=== PATIENT | female | born 1985 | race Caucasian/White ===

== ENCOUNTER 2023-05-12 10:44 | Outpatient (AMB) | payer OTHER, SELFPAY ==
--- NOTE | 2023-05-12 11:44 | MHC.OFFWIV ---
Intake Vital Signs 05/12/23 11:45 Height 5 ft 10 in BP 132/80 Blood Pressure Location Lt brachial Position Sitting Pulse 98 Pulse Source Pulse Oximeter Temp 96.9 F Temp Source Temporal Artery Scan Pulse Oximetry (%) 99 Oxygen Delivery Method Room Air Intake Visit Reasons: EP Abdominal pain/kidneypain [phone] Intake Note: Pt is here c/o gastro intense pain. Pt states she has been feeling discomfort for 4 days. Patient Tobacco Use Status: Never used Tobacco Allergies shellfish derived [SHELLFISH DERIVED] Allergy (Unknown, Unverified 05/12/23 13:27) VOMITING, DIARRHEA Medication List - Last Reconciled 05/12/23 by Marcelo Tavares MD dextroamphetamine-amphetamine 30 mg ER 1 cap PO DAILY Do you need a note to return to daycare/school/sports/work: Yes HPI EP Abdominal pain/kidneypain [phone] HPI Details Patient presents for a sick visit. Reports symptoms of increased frequency of urination, burning on urination and discomfort in the suprapubic area. Symptoms started in the past few days. No fevers or chills. No nausea or vomiting. PFSH Social History Patient Tobacco Use Status: Never used Tobacco Physical Exam Vital Signs: Last Vital Signs Temp 96.9 F 05/12/23 11:45 Pulse 98 05/12/23 11:45 BP 132/80 05/12/23 11:45 Pulse Ox 99 05/12/23 11:45 Oxygen Delivery Method Room Air 05/12/23 11:45 General: Yes bladder normal to inspection, Yes bladder normal to palpation and Yes no CVA tenderness Bimanual exam- vagina & uterus: bladder normal to palpation Back/Spine/Pelvis Back: no CVA tenderness Results AMB Urinalysis, Automated UA Leukoctes 0 Valarie/uL Last Edit by Yanira Snyder CMA on 05/12/23 12:03 UA Nitrite Negative Last Edit by Yanira Snyder CMA on 05/12/23 12:03 UA Urobilinogen 0.2 mg/dL Last Edit by Yanira Snyder CMA on 05/12/23 12:03 UA Protein 0 mg/dL Last Edit by Yanira Snyder CMA on 05/12/23 12:03 UA pH 6.0 Last Edit by Yanira Snyder CMA on 05/12/23 12:03 UA Blood 0 James/uL Last Edit by Yanira Snyder CMA on 05/12/23 12:03 UA Specific [place] 1.020 Last Edit by Yanira Snyder CMA on 05/12/23 12:03 UA Ketone Negative Last Edit by Yanira Snyder, FLORY on 05/12/23 12:03 UA Bilirubin 0 mg/dL Last Edit by Yanira Snyder CMA on 05/12/23 12:03 UA Glucose 0 mg/dL Last Edit by Yanira Snyder CMA on 05/12/23 12:03 Results Reviewed Results Reviewed: Laboratory Last Values Urine pH (Auto) 6.0 05/12/23 12:00 Specific [place] (Auto) 1.020 05/12/23 12:00 Urine Protein (Auto) 0 mg/dL 05/12/23 12:00 Glucose (UA)(Auto) 0 mg/dL 05/12/23 12:00 Urine Ketones (Auto) Negative 05/12/23 12:00 Urine Blood (Auto) 0 James/uL 05/12/23 12:00 Urine Nitrite (Auto) Negative 05/12/23 12:00 Urine Bilirubin (Auto) 0 mg/dL 05/12/23 12:00 Urine Urobilinogen (Auto) 0.2 mg/dL 05/12/23 12:00 Leukocyte Esterase (Auto) 0 Valarie/uL 05/12/23 12:00 Assessment & Plan Assessment & Plan (1) Urinary tract infection: Code(s): N39.0 - Urinary tract infection, site not specified Plan: Take antibiotics and Pyridium as directed. Increase fluid intake. If symptoms of burning persist, new onset of fever or lower back pain, to follow-up at the clinic. Orders: Orders AMB Urinalysis Automated Today Z13.9 - Encounter for screening, unspecified Coding Level of Care Code Est Pt Level 3 (59134) Diagnoses Urinary tract infection N39.0
[2023-05-12 11:45] VITALS: BP 132/80; PULSE 98; TEMP 36.1; O2SAT 99
== END 2023-05-12 13:32 | disposition home or self-care (01) ==
PROVIDERS: PCP Internal Medicine; Visit Provider Internal Medicine
DX: N39.0 Urinary tract infection, site not specified (principal); R35.0 Frequency of micturition
CPT/HCPCS: 81003; 99213

== ENCOUNTER 2024-03-10 08:24 | Outpatient (AMB) | payer OTHER, SELFPAY ==
[2024-03-10 08:37] VITALS: BP 140/100; PULSE 94; TEMP 36.5; O2SAT 98; BMI 44.5
--- NOTE | 2024-03-10 08:37 | AM.OFFWIN_ITS ---
Intake Vital Signs 03/10/24 08:37 Height 5 ft 10 in Weight 310 lb BMI 44.5 BP 140/100 H Blood Pressure Location Lt brachial Position Sitting Pulse 94 Pulse Source Pulse Oximeter Temp 97.7 F Temp Source Temporal Artery Scan Pulse Oximetry (%) 98 Oxygen Delivery Method Room Air Intake Visit Reasons: EP UTI Intake Note: pt is here today for UTI started 3 days ago Patient Tobacco Use Status: Never used Tobacco Allergies shellfish derived [SHELLFISH DERIVED] Allergy (Unknown, Verified 03/10/24 08:50) VOMITING, DIARRHEA Do you need a note to return to daycare/school/sports/work: No HPI HPI Comments History of Present Illness Details 39 y/o female patient who presents to [facility] in clinic with c/o Urinary symptoms x 3 days. Reports discomfort with urination, foul odor urine and dark brown colored urine. Denies fevers, chills, nausea or vomiting. PFSH Social History Patient Tobacco Use Status: Never used Tobacco Review of Systems Const All systems reviewed & are unremarkable except as noted in HPI and below Physical Exam Vital Signs: Last Vital Signs Temp 97.7 F 03/10/24 08:37 Pulse 94 03/10/24 08:37 BP 140/100 H 03/10/24 08:37 Pulse Ox 98 03/10/24 08:37 Oxygen Delivery Method Room Air 03/10/24 08:37 BMI result Body Mass Index 44.5 Const General: comfortable and no acute distress Nutritional Appearance: obese Orientation/consciousness: patient oriented x3 General: Yes CVA tenderness Back/Spine/Pelvis Back: CVA tenderness Neuro General: patient oriented x3, gait normal and moves all extremities Psych Speech and movement: Normal speech and movement present Results AMB Urinalysis, Automated UA Leukoctes 15 Valarie/uL Last Edit by Kath Rangel MA on 03/10/24 08:53 UA Nitrite Negative Last Edit by Kath Rangel MA on 03/10/24 08:53 UA Urobilinogen 0.2 mg/dL Last Edit by Kath Rangel MA on 03/10/24 08:53 UA Protein 15 mg/dL Last Edit by Kath Rangel MA on 03/10/24 08:53 UA pH 6.0 Last Edit by Kath Rangel MA on 05/08/24 08:53 UA Blood 200 James/uL Last Edit by Kath Rangel MA on 03/10/24 08:53 UA Specific [place] 1.015 Last Edit by Kath Rangel MA on 03/10/24 08:53 UA Ketone Negative Last Edit by Kath Rangel MA on 03/10/24 08:53 UA Bilirubin 0 mg/dL Last Edit by Kath Rangel MA on 03/10/24 08:53 UA Glucose 0 mg/dL Last Edit by Ktah Rangel MA on 03/10/24 08:53 Results Reviewed Results Reviewed: Laboratory Last Values Urine pH (Auto) 6.0 03/10/24 08:52 Specific [place] (Auto) 1.015 03/10/24 08:52 Urine Protein (Auto) 15 mg/dL 03/10/24 08:52 Glucose (UA)(Auto) 0 mg/dL 03/10/24 08:52 Urine Ketones (Auto) Negative 03/10/24 08:52 Urine Blood (Auto) 200 James/uL 03/10/24 08:52 Urine Nitrite (Auto) Negative 03/10/24 08:52 Urine Bilirubin (Auto) 0 mg/dL 03/10/24 08:52 Urine Urobilinogen (Auto) 0.2 mg/dL 03/10/24 08:52 Leukocyte Esterase (Auto) 15 Valarie/uL 03/10/24 08:52 Assessment & Plan Assessment & Plan (1) Urinary tract infection: Code(s): N39.0 - Urinary tract infection, site not specified Qualifiers: Urinary tract infection type: acute cystitis Hematuria presence: without hematuria Qualified Code(s): N30.00 - Acute cystitis without hematuria Plan: - Drink plenty of water - Take medicine as directed. Medications: New nitrofurantoin monohyd/m-cryst 100 mg (Macrobid) must administer with a meal/food 100 mg PO Q12H 7 days 14 caps 0RF N30.00 - Acute cystitis without hematuria Discontinued sulfamethoxazole-trimethoprim 800-160 mg (Bactrim DS) Discontinued Reason: Patient Completed Course 1 tab PO BID 5 days 10 tabs 0RF phenazopyridine (Pyridium) Discontinued Reason: Patient Completed Course 200 mg PO TID 3 days 9 tabs 0RF Coding Level of Care Code Est Pt Level 3 (96496) Diagnoses Acute cystitis without hematuria N30.00 Urinary tract infection type: acute cystitis Hematuria presence: without hematuria Time Spent (min) 15
== END 2024-03-10 09:00 | disposition home or self-care (01) ==
PROVIDERS: Visit Provider Nurse Practitioner Family
DX: N30.00 Acute cystitis without hematuria (principal)
CPT/HCPCS: 99213

== ENCOUNTER 2024-07-21 14:13 | Outpatient (AMB) | payer BC, SELFPAY ==
--- NOTE | 2024-07-21 14:14 | AM.OFFWIN_ITS ---
Intake Vital Signs 07/21/24 14:15 Height 5 ft 10 in Weight 311 lb BMI 44.6 BP 128/86 Blood Pressure Location Rt brachial Position Sitting Pulse 83 Pulse Source Pulse Oximeter Temp 98.3 F Temp Source Oral Pulse Oximetry (%) 99 Oxygen Delivery Method Room Air Intake Visit Reasons: EP Kidney pain Intake Note: pt c/o lower back pain/ ? kidney pain, urinary urgency. Intermittent for 2 weeks Patient Tobacco Use Status: Never used Tobacco Allergies shellfish derived [SHELLFISH DERIVED] Allergy (Unknown, Verified 07/21/24 14:14) VOMITING, DIARRHEA Do you need a note to return to daycare/school/sports/work: No HPI HPI Comments History of Present Illness Details Patient is a 39-year-old female complaining of right-sided low back pain which has been intermittent for the last 2 weeks. Patient actually tells me she has had increased urgency for the last few months on and off and she was treated for a urinary tract infection twice over the summer but never really felt like she got better or her symptoms completely resolved. She showed me the [employer] urine culture from the last ?UTI ?and there was no growth. She states that she has had kidney stones in the past and presumably passed them on her own because she does not remember hearing a ?clink ?in the toilet. She also states that yesterday she had an intense right-sided low back pain for about 45 minutes but then it stopped, the pain was similar to the pain she had with her kidney stones in the past. She denies noticing any blood in her urine or fevers. She does state she is having her menstrual cycle right now. [facility] Social History Patient Tobacco Use Status: Never used Tobacco Review of Systems Const All systems reviewed & are unremarkable except as noted in HPI and below Physical Exam Vital Signs: BMI result Body Mass Index 44.6 Const General: cooperative, healthy appearing, comfortable and no acute distress Orientation/consciousness: patient oriented x3 HEENT Head: Yes normal to inspection Ears: hearing grossly normal bilaterally General nose exam: Normal external nose present Face and sinus: Yes normal facial exam Neck Neck: Yes normal visual inspection, Yes trachea midline and Yes supple Resp Effort & Inspection: normal respiratory effort and able to speak in complete sentences General: Yes no CVA tenderness (Bilaterally) Back/Spine/Pelvis Back: no CVA tenderness (Bilaterally) Skin General skin exam: no rashes or lesions noted Neuro General: patient oriented x3 Psych Appearance: grossly normal Speech and movement: Normal speech and movement present Attitude: cooperative Thought process: Normal thought process present Insight: Good insight present (Psych) Judgement: Good judgement present (Psych) Results AMB Urinalysis, Automated UA Leukoctes 0 Valarie/uL Last Edit by Joseph Crawford CMA on 07/21/24 14:27 UA Nitrite Negative Last Edit by Joseph Crawford CMA on 07/21/24 14:27 UA Urobilinogen 0.2 mg/dL Last Edit by Joseph Crawford CMA on 07/21/24 14:27 UA Protein 15 mg/dL Last Edit by Joseph Crawford CMA on 07/21/24 14:27 UA pH 6.0 Last Edit by Joseph Crawford CMA on 07/21/24 14:27 UA Blood 200 James/uL Last Edit by Joseph Crawford, FLORY on 07/21/24 14:27 UA Specific [place] 1.030 Last Edit by Joseph Crawford CMA on 07/21/24 14:27 UA Ketone Negative Last Edit by Joseph Crawford CMA on 07/21/24 14:27 UA Bilirubin 0 mg/dL Last Edit by Joseph Crawford CMA on 07/21/24 14:27 UA Glucose 0 mg/dL Last Edit by Joseph Crawford CMA on 07/21/24 14:27 Assessment & Plan Assessment & Plan (1) Right-sided low back pain without sciatica: Code(s): M54.50 - Low back pain, unspecified Qualifiers: Chronicity: acute Qualified Code(s): M54.50 - Low back pain, unspecified Plan: Vital signs are stable and patient is well-appearing, UA is negative for infection but 3+ positive for blood (however patient on her menstrual cycle), likely a right-sided kidney stone based on the story. Recommended patient go to the emergency department for further workup. Called [facility] ED with expect. Plan See above Coding Level of Care Code New Pt Level 5 (96618) Diagnoses Acute right-sided low back pain without sciatica M54.50 Chronicity: acute
[2024-07-21 14:15] VITALS: BP 128/86; PULSE 83; TEMP 36.8; O2SAT 99; BMI 44.6
== END 2024-07-21 15:27 | disposition home or self-care (01) ==
PROVIDERS: PCP Internal Medicine; Visit Provider Physician Assistant
DX: M54.50 Low back pain, unspecified (principal)

== ENCOUNTER → 2024-07-21 14:13 | Outpatient (BNVA) | payer BC, SELFPAY | PROVIDERS: PCP Internal Medicine | DX: Z13.89 Encounter for screening for other disorder (principal) ==

== ENCOUNTER 2024-07-21 14:57 | Emergency (ER) | payer BC, SELFPAY ==
--- NOTE | ~2024-07-21 | XR_ITS ---
EXAMINATION: XR CHEST CLINICAL INFORMATION: Cough. COMPARISON: None available. TECHNIQUE: Frontal view of the chest was obtained. FINDINGS: No significant abnormality is noted involving the heart, lungs, mediastinum, bony thorax or soft tissues. XR/XR chest 1V IMPRESSION: Unremarkable examination. Electronically signed by: Capo Ordaz MD 07/22/2024 04:43 AM EDT
--- NOTE | ~2024-07-21 | CT_ITS ---
EXAMINATION: CT ABDOMEN AND PELVIS WITHOUT CONTRAST CLINICAL INFORMATION: Right sided flank pain COMPARISON: CT abdomen and pelvis 06/04/2020 TECHNIQUE: Multidetector volumetric imaging was performed from the superior aspect of the liver through the pubic symphysis. Sagittal and coronal reformatted images were obtained on the technologist's workstation. This CT examination was performed using dose optimization techniques as appropriate, variously including the following: *Automated exposure control *Adjustment of mA and/or kV according to patient size (this includes techniques or standardized protocols for targeted exams where dose is matched to indication/reason for exam; i.e. extremities or head) *Use of iterative reconstruction technique DLP: 1284 mGy-cm FINDINGS: LUNG BASES: The visualized lung bases are unremarkable. LIVER, GALLBLADDER, AND BILIARY TREE: The liver is enlarged at 18.6 cm in length with decreased attenuation consistent with hepatic steatosis. There is focal fatty sparing around the gallbladder. No focal hepatic lesion or biliary ductal dilatation is present. The gallbladder is unremarkable with no evidence of radiopaque gallstones, gallbladder wall thickening, or obvious pericholecystic inflammatory changes. PANCREAS: Unremarkable. SPLEEN: Unremarkable. ADRENAL GLANDS: Unremarkable. KIDNEYS AND URETERS: There is right-sided hydronephrosis and dilatation of the right ureter down to the level of 2 mm sized obstructing stone at the right UVJ. Left kidney and ureter are normal. BLADDER: Empty but unremarkable GASTROINTESTINAL TRACT: Few scattered colonic diverticula without diverticulitis. The small and large bowel are unremarkable. The appendix is unremarkable. ABDOMINAL WALL: No significant hernia is appreciated. LYMPH NODES: No retroperitoneal lymphadenopathy VASCULAR: Unremarkable. PELVIC VISCERA: Feeding OSSEOUS STRUCTURES: Marked scoliosis convex to the left with left lateral listhesis of L2 upon L3 with severe degenerative change at this level with loss of the disc space CT/CT abdomen pelvis wo IV con IMPRESSION: 1. Obstructing 2 mm calculus at the right UVJ with associated right-sided hydronephrosis. 2. Incidental note made of enlarged fatty liver and severe degenerative changes in the spine with scoliosis. Fleischner guidelines were followed. Electronically signed by: Daniel Masters MD 07/21/2024 10:53 PM EDT
[2024-07-21 15:17] VITALS: BP 213/117; PULSE 84; RESP 16; TEMP 37.1; O2SAT 100; BMI 45.2
--- NOTE | 2024-07-21 15:20 | ED.GENADULT ---
HPI - General Adult General Chief complaint: Urogenital-Female Stated complaint: back pain Time Seen by Provider: 07/22/24 02:39 Source: patient Mode of arrival: ambulatory Limitations: no limitations History of Present Illness ED Provider: Lucretia LOPEZ narrative: Patient's right-sided flank pain and suprapubic pressure off and for last few weeks got worse in last few days no hematuria was treated for UTI in the past no fever no chills no bowel problems Related Data Home Medications ?Medication ?Instructions ?Recorded ?Confirmed dextroamphetamine-amphetamine ER 1 cap PO DAILY 05/12/23 30 mg 24hr capsule,extend release Previous Rx's ?Medication ?Instructions ?Recorded cefuroxime axetil 250 mg tablet 250 mg PO BID 7 days #14 tabs 07/22/24 oxycodone 5 mg tablet 5 mg PO Q6H PRN pain #20 tabs 07/22/24 tamsulosin 0.4 mg capsule (Flomax) 0.4 mg PO BEDTIME #7 caps 07/22/24 Allergies Allergy/AdvReac Type Severity Reaction Status Date / Time shellfish derived Allergy Unknown VOMITING, Verified 07/21/24 15:21 [SHELLFISH DERIVED] DIARRHEA Review of Systems Review of Systems: Yes all other systems are reviewed and are negative [facility] Social History Social History Patient Tobacco Use Status: Never used Tobacco Substance Use Type: Marijuana Physical Exam ED Vital Signs: BMI result Body Mass Index 45.2 Appearance: Alert. Oriented X3. No acute distress. ENT: Pharynx normal. Oral Mucosa moist Neck: Normal inspection. Neck supple. CVS: Normal heart rate and rhythm. Pulses normal. Respiratory: No respiratory distress. Equal air entry bilateral, Abdomen: Soft and nontender. Bowel sounds are present, no mass palpable, R CVA tenderness Skin: Skin warm and dry. Normal skin color. Normal skin turgor. Extremities: No lower extremity edema. No calf tenderness Neuro: Oriented X 3. No motor deficit. No sensory deficit.No cerebellar signs , cranial nerves II-XII intact Course Course Course Narrative: This is a rapid medical exam performed by Darnell Rothman NP: Additional HPI, ROS, PE not included below will be deferred to primary provider. Patient is a 39-year-old female presenting with R flank pain since March. Treated for UTI, sxs persisting. Started menstrual period today. BP 213/117 in triage, denies hx of HTN. Plan: EKG, labs, UA, CT Medications Administered Discontinued Medications Generic Name Dose Route Start Last Admin Trade Name Chance PRN Reason Stop Dose Admin Cefuroxime Axetil 500 mg 07/22/24 05:20 07/22/24 05:37 Cefuroxime Axetil 500 Mg Tablet PO 07/22/24 05:21 500 mg ONCE ONE Administration Ketorolac Tromethamine 60 mg 07/22/24 05:25 07/22/24 05:37 Ketorolac Tromethamine 60 Mg/2 Ml Vial IM 07/22/24 05:26 60 mg ONCE ONE Administration Tamsulosin HCl 0.4 mg 07/22/24 05:20 07/22/24 05:37 Tamsulosin Hcl 0.4 Mg Capsule PO 07/22/24 05:21 0.4 mg ONCE ONE Administration Medical Decision Making Medical Decision Making [facility] Narrative: Patient is a 2 mm right UVJ stone with mild hydro felt better after IV fluids and pain medication in the ER pain-free at this time will discharge patient home advised to follow with urologist Differential Diagnosis Differential Diagnoses: The differential diagnosis associated with the presentation includes Lab Data MDM Lab Attestation statement: I reviewed the patient's lab results. 07/21/24 18:40 07/21/24 18:40 Labs: Lab Results 07/21/24 07/21/24 07/21/24 Range/Units 18:35 18:39 18:40 WBC 11.1 H (4.8-10.8) X10*3/uL RBC 5.23 (4.20-5.50) X10*6/uL Hgb 14.6 (12.0-16.0) g/dl Hct 44.4 (37.0-47.0) % MCV 84.9 (80.0-98.0) fL MCH 27.9 (27.0-33.0) pg MCHC 32.9 (31.0-35.0) g/dl RDW 12.1 (11.0-16.0) % Plt Count 320 (160-400) X10*3/uL MPV 9.5 (9.4-12.3) fL Immature Gran % (Auto) 0.4 (0.0-0.4) % Neut % (Auto) 74.7 H (45-73) % Lymph % (Auto) 16.1 L (20-40) % [place] % (Auto) 6.7 (2-11) % Eos % (Auto) 1.7 (0-4) % Baso % (Auto) 0.4 (0-2) % Lymph # (Auto) 1.8 (1.2-4.9) X10*3/uL [place] # (Auto) 0.7 (0.1-1.2) X10*3/uL Eos # (Auto) 0.2 (0.0-0.4) X10*3/uL Baso # (Auto) 0.0 (0.0-0.2) X10*3/uL Abs Immat Gran (auto) 0.04 H (0.00-0.03) X10*3/uL Absolute Neuts (auto) 8.3 (2.0-8.3) x10*3/uL Absolute Nucleated RBC 0.000 (0.0-0.012) X10*3/uL Nucleated RBC % (auto) 0.0 (0.0-0.2) /100WBC Sodium 141 (135-145) mmol/L Potassium 4.1 (3.3-5.1) mmol/L Chloride 105 (96-108) mmol/L Carbon Dioxide 26 (22-29) mmol/L Anion Gap 14 (12-20) BUN 14 (9-16) mg/dL Creatinine 1.07 (0.5-1.4) mg/dL Estim Creat Clear Calc 109.5 Estimated GFR 57 Random Glucose 98 (60-115) mg/dL Calcium 9.7 (8.4-10.2) mg/dL Total Bilirubin 0.3 (0.0-1.0) mg/dL AST 34 H (5-31) U/L ALT 49 H (0-31) U/L Alkaline Phosphatase 59 (39-117) U/L Total Protein 7.9 (6.5-8.0) g/dL Albumin 4.4 (3.5-5.0) g/dL Beta HCG, Quant < 2 mIU/mL Urine Color Yellow Urine Appearance Cloudy Urine pH 5.5 (5.0-9.0) Ur Specific [place] >= 1.030 H (1.005-1.025) Urine Protein Trace (Neg-Trace) mg/dL Urine Glucose (UA) Negative (Negative) mg/dL Urine Ketones Trace (Negative) mg/dL Urine Blood Large (3+) H (Negative) Urine Nitrite Negative (Negative) Ur Leukocyte Esterase Trace H (Negative) Urine RBC >20 H (0-2) /HPF Urine WBC 11-20 H (0-5) /HPF Ur Squamous Epith Cells 6-10 (0-2) /HPF Calcium Oxalate Crystal Present Urine Bacteria 2+ (None Seen) Hyaline Casts 0-2 (0-2) /LPF COVID-19 (SEBASTIÁN) (Negative) COVID-19 Clin Com 07/22/24 Range/Units 04:18 WBC (4.8-10.8) X10*3/uL RBC (4.20-5.50) X10*6/uL Hgb (12.0-16.0) g/dl Hct (37.0-47.0) % MCV (80.0-98.0) fL MCH (27.0-33.0) pg MCHC (31.0-35.0) g/dl RDW (11.0-16.0) % Plt Count (160-400) X10*3/uL MPV (9.4-12.3) fL Immature Gran % (Auto) (0.0-0.4) % Neut % (Auto) (45-73) % Lymph % (Auto) (20-40) % [place] % (Auto) (2-11) % Eos % (Auto) (0-4) % Baso % (Auto) (0-2) % Lymph # (Auto) (1.2-4.9) X10*3/uL [place] # (Auto) (0.1-1.2) X10*3/uL Eos # (Auto) (0.0-0.4) X10*3/uL Baso # (Auto) (0.0-0.2) X10*3/uL Abs Immat Gran (auto) (0.00-0.03) X10*3/uL Absolute Neuts (auto) (2.0-8.3) x10*3/uL Absolute Nucleated RBC (0.0-0.012) X10*3/uL Nucleated RBC % (auto) (0.0-0.2) /100WBC Sodium (135-145) mmol/L Potassium (3.3-5.1) mmol/L Chloride (96-108) mmol/L Carbon Dioxide (22-29) mmol/L Anion Gap (12-20) BUN (9-16) mg/dL Creatinine (0.5-1.4) mg/dL Estim Creat Clear Calc Estimated GFR Random Glucose (60-115) mg/dL Calcium (8.4-10.2) mg/dL Total Bilirubin (0.0-1.0) mg/dL AST (5-31) U/L ALT (0-31) U/L Alkaline Phosphatase (39-117) U/L Total Protein (6.5-8.0) g/dL Albumin (3.5-5.0) g/dL Beta HCG, Quant mIU/mL Urine Color Urine Appearance Urine pH (5.0-9.0) Ur Specific [place] (1.005-1.025) Urine Protein (Neg-Trace) mg/dL Urine Glucose (UA) (Negative) mg/dL Urine Ketones (Negative) mg/dL Urine Blood (Negative) Urine Nitrite (Negative) Ur Leukocyte Esterase (Negative) Urine RBC (0-2) /HPF Urine WBC (0-5) /HPF Ur Squamous Epith Cells (0-2) /HPF Calcium Oxalate Crystal Urine Bacteria (None Seen) Hyaline Casts (0-2) /LPF COVID-19 (SEBASTIÁN) Negative (Negative) COVID-19 Clin Com See Note Independent Interpretation I performed an independent interpretation of an: CT Scan Radiology Impression Discussion of test interpretation with radiology: I have reviewed the radiologist's reading. Radiologist Impression: Close Chest X-Ray (Signed) Capo Ordaz - 07/22/24 Abdomen/Pelvis CT (Signed) Daniel Masters - 07/21/24 Launch?Image [address] [address] [address] Scan Report Signed Patient: Radha Lambert MR#: [id number] : 1985 Acct:[id number] Age/Sex: 39 / F ADM Date: 07/21/24 Loc: HO.ED Attending Dr: Ordering Physician: Aleyda Rothman NP Date of Service: 07/21/24 Procedure(s): CT abdomen pelvis wo IV con Accession Number(s): [id number] cc: Ambreen Siddiqui MD; Aleyda Rothman NP~ EXAMINATION: CT ABDOMEN AND PELVIS WITHOUT CONTRAST CLINICAL INFORMATION: Right sided flank pain COMPARISON: CT abdomen and pelvis 06/04/2020 TECHNIQUE: Multidetector volumetric imaging was performed from the superior aspect of the liver through the pubic symphysis. Sagittal and coronal reformatted images were obtained on the technologist's workstation. This CT examination was performed using dose optimization techniques as appropriate, variously including the following: *Automated exposure control *Adjustment of mA and/or kV according to patient size (this includes techniques or standardized protocols for targeted exams where dose is matched to indication/reason for exam; i.e. extremities or head) *Use of iterative reconstruction technique DLP: 1284 mGy-cm FINDINGS: LUNG BASES: The visualized lung bases are unremarkable. LIVER, GALLBLADDER, AND BILIARY TREE: The liver is enlarged at 18.6 cm in length with decreased attenuation consistent with hepatic steatosis. There is focal fatty sparing around the gallbladder. No focal hepatic lesion or biliary ductal dilatation is present. The gallbladder is unremarkable with no evidence of radiopaque gallstones, gallbladder wall thickening, or obvious pericholecystic inflammatory changes. PANCREAS: Unremarkable. SPLEEN: Unremarkable. ADRENAL GLANDS: Unremarkable. KIDNEYS AND URETERS: There is right-sided hydronephrosis and dilatation of the right ureter down to the level of 2 mm sized obstructing stone at the right UVJ. Left kidney and ureter are normal. BLADDER: Empty but unremarkable GASTROINTESTINAL TRACT: Few scattered colonic diverticula without diverticulitis. The small and large bowel are unremarkable. The appendix is unremarkable. ABDOMINAL WALL: No significant hernia is appreciated. LYMPH NODES: No retroperitoneal lymphadenopathy VASCULAR: Unremarkable. PELVIC VISCERA: Feeding OSSEOUS STRUCTURES: Marked scoliosis convex to the left with left lateral listhesis of L2 upon L3 with severe degenerative change at this level with loss of the disc space CT/CT abdomen pelvis wo IV con IMPRESSION: 1. Obstructing 2 mm calculus at the right UVJ with associated right-sided hydronephrosis. 2. Incidental note made of enlarged fatty liver and severe degenerative changes in the spine with scoliosis. Fleischner guidelines were followed. Electronically signed by: Daniel Masters MD 07/21/2024 10:53 PM EDT RP Discharge Plan Discharge Clinical Impression: Kidney stone on right side Urinary tract infection Qualifiers: Urinary tract infection type: acute cystitis Hematuria presence: without hematuria Qualified Code(s): N30.00 - Acute cystitis without hematuria Patient Disposition: Home, Self-Care Instructions: Kidney Stones (ED), Urinary Tract Infection in Women (ED) Additional Instructions: Drink plenty of fluids Your have very small stone at the right side which likely going to pass You have slight urinary tract infect Take pain medication and antibiotic as prescribed Flomax daily till you have pain Follow with urology Prescriptions: New cefuroxime axetil 250 mg tablet 250 mg PO BID 7 Days Qty: 14 0RF tamsulosin [Flomax] 0.4 mg capsule 0.4 mg PO BEDTIME Qty: 7 0RF oxycodone 5 mg tablet 5 mg PO Q6H PRN (Reason: pain) Qty: 20 0RF Rx Instructions: Partial Fill upon patient request. No Action dextroamphetamine-amphetamine 30 mg capsule,extended release 24hr 1 cap PO DAILY Referrals: Chip Prieto MD [Physician] - 3 days Interventions: ED Discharge Assessment Last Done: 07/22/24 05:44 Discharge Date/Time: 07/22/24 05:49 Print Language: Kuwaiti
--- NOTE | 2024-07-21 15:21 | ECG_ITS ---
Test Reason : htn Blood Pressure : / mmHG Vent. Rate : 073 BPM Atrial Rate : 073 BPM P-R Int : 136 ms QRS Dur : 096 ms QT Int : 378 ms P-R-T Axes : 011 016 033 degrees QTc Int : 416 ms Normal sinus rhythm Normal ECG When compared with ECG of 24-MAY-2016 12:40, No significant change was found Referred By: Aleyda Rothman Electronically Signed By:SRINIVAS THOMPSON
[2024-07-21 18:55] LABS: Appearance Urine Cloudy; Color Urine Yellow; Glucose Urine UA Negative (Negative); Leukocyte Esterase Urine Trace (Negative); Nitrite Urine Negative (Negative); PH 5.5 (5.0-9.0); Specific Gravity - Urine >= 1.030 (1.005-1.025); UMIC TRIGGER UACC YES; Urine Blood Large (3+) (Negative); Urine Ketones Trace mg/dL (Negative); Urine Protein Trace mg/dL (Neg-Trace)
[2024-07-21 19:05] LABS: MANUAL DIFF FLAG NO
[2024-07-21 19:21] LABS: Basophils Percent Auto 0.4 % (0-2); Eosinophils Absolute Auto 0.2 X10*3/uL (0.0-0.4); Eosinophils Percent Auto 1.7 % (0-4); Hematocrit 44.4 % (37.0-47.0); Hemoglobin 14.6 g/dl (12.0-16.0); Imm Gran Abs Auto 0.04 X10*3/uL (0.00-0.03); Imm Gran Pct Auto 0.4 % (0.0-0.4); Lymphocytes Absolute Auto 1.8 X10*3/uL (1.2-4.9); Lymphocytes Percent Auto 16.1 % (20-40); Mean Corpuscular HGB Conc 32.9 g/dl (31.0-35.0); Mean Corpuscular Hemoglobin 27.9 pg (27.0-33.0); Mean Corpuscular Volume 84.9 fL (80.0-98.0); Mean Platelet Volume 9.5 fL (9.4-12.3); Monocytes Absolute Auto 0.7 X10*3/uL (0.1-1.2); Monocytes Percent Auto 6.7 % (2-11); Neutrophils Absolute Auto 8.3 x10*3/uL (2.0-8.3); Neutrophils Percent Auto 74.7 % (45-73); Platelet Count 320 X10*3/uL (160-400); Red Blood Count 5.23 X10*6/uL (4.20-5.50); Red Cell Distribution Width 12.1 % (11.0-16.0); White Blood Count 11.1 X10*3/uL (4.8-10.8)
[2024-07-21 19:32] LABS: Alanine Aminotransferase 49 U/L (0-31); Albumin Level 4.4 g/dL (3.5-5.0); Alkaline Phosphatase 59 U/L (39-117); Anion Gap 14 (12-20); Aspartate Amino Transferase 34 U/L (5-31); Bilirubin Total 0.3 mg/dL (0.0-1.0); Blood Urea Nitrogen 14 mg/dL (9-16); Calcium 9.7 mg/dL (8.4-10.2); Carbon Dioxide 26 mmol/L (22-29); Chloride 105 mmol/L (96-108); Creatinine Clr Calc Pharmacy 109.5; Estimated Glomerular Filt Rate 57; Glucose Random 98 mg/dL (60-115); Potassium 4.1 mmol/L (3.3-5.1); Sodium 141 mmol/L (135-145); Total Protein 7.9 g/dL (6.5-8.0)
[2024-07-21 19:40] LABS: HCG Quantitative < 2 mIU/mL
[2024-07-21 19:56] LABS: Bacteria Urine 2+ (None Seen); Calcium Oxalate Crystals Urine Present; Hyaline Casts Urine 0-2 /LPF (0-2); RBC Urine >20 /HPF (0-2); UACC Culture Trigger YES
--- NOTE | 2024-07-22 01:39 | PC.NURSE ---
pt from lobby, assume care of pt at this time
[2024-07-22 02:00] VITALS: BP 142/78; PULSE 74; RESP 20; TEMP 36.8; O2SAT 98
[2024-07-22 04:37] LABS: COVID-19 Test Negative (Negative); IDNOW Serial# 152EDE1D
--- NOTE | 2024-07-22 05:05 | PC.NURSE ---
resting quielty on stretcher with eyes closed, resp with ease, no s/s of acute distress
[2024-07-22] MEDS: Tamsulosin HCL 0.4 MG CAPSULE PO (05:37)
[2024-07-22] MEDS: Ketorolac Tromethamine 60 MG/2 ML VIAL IM (05:37)
[2024-07-22] MEDS: cefuroxime axetiL 500 MG TABLET PO (05:37)
[2024-07-22 05:44] VITALS: BP 108/63; PULSE 78; RESP 18; TEMP 36.8; O2SAT 98
== END 2024-07-22 05:49 | disposition home or self-care (01) ==
PROVIDERS: Registered Nurse Emergency; Emergency Provider Internal Medicine; PCP Internal Medicine
DX: N20.0 Calculus of kidney (principal); N30.00 Acute cystitis without hematuria; M54.50 Low back pain, unspecified; I10 Essential (primary) hypertension; R10.9 Unspecified abdominal pain; R05.9 Cough, unspecified; Z11.52 Encounter for screening for COVID-19; Z79.899 Other long term (current) drug therapy
CPT/HCPCS: 36415; 71045; 74176; 80053; 81001; 81003; 84702; 85025; 87086; 87635; 93005; 96372; 99284; 99285; J1885

== ENCOUNTER 2024-09-02 07:58 | Outpatient (AMB) | payer BC, SELFPAY ==
--- NOTE | 2024-09-02 08:05 | A.OFFVIS_ITS ---
Intake Visit Reasons: kidney stone Intake Note: New Patient presents for initial visit for kidney stone Urology Medications: none Blood Thinner: none Storage Receipt Poster Required: No Accompanied by: Self / Same As Patient Allergies shellfish derived [SHELLFISH DERIVED] Allergy (Unknown, Verified 09/02/24 08:43) VOMITING, DIARRHEA Medication List - Last Reconciled 09/02/24 by JUAN Fang dextroamphetamine-amphetamine 30 mg ER 1 cap PO DAILY HPI Comments Details: Radha is a very pleasant 39-year-old female patient of Dr. Siddiqui. She presents to the office today as a new patient for nephrolithiasis. In discussion with the patient today she reports having seeked emergency room care approximately 1 month ago for right-sided flank pain and suprapubic pressure she had been experiencing at which time a CT was ordered for further assessment evaluation. These results reviewed with the patient today. There is right- sided hydronephrosis and dilatation of the right ureter down to the level of a 2 mm sized obstructing stone in the right UVJ. Left kidney and ureter are normal. The bladder is empty but unremarkable. When asked she reports a previous history of nephrolithiasis approximately 4 years ago however never requiring surgical intervention. She also reports having experienced a urinary tract infection last year. She reports pain and lower urinary tract symptoms she had been experiencing has since subsided. We discussed at length potential causes of nephrolithiasis as well as obtaining renal ultrasound. She otherwise denies urinary urgency, urinary frequency, incontinence, nocturia, hematuria, dysuria, foul smelling urine, changes to urinary stream, flank pain, fever, and or chills. She is happy with her current voiding parameters. In office urinalysis results reviewed with the patient today. She denies any other issues or concerns at this time. [facility] Social History Patient Tobacco Use Status: Never used Tobacco Substance Use Type: Marijuana Review of Systems Const All systems reviewed & are unremarkable except as noted in HPI and below Physical Exam Const General: cooperative, healthy appearing, comfortable, no acute distress, well developed, alert and awake Orientation/consciousness: patient oriented x3 Limitations: no limitations HEENT Head: Yes normal to inspection, Yes normocephalic and Yes atraumatic Ears: hearing grossly normal bilaterally Eyes General: appearance normal, both eyes and all related structures Neck Neck: Yes normal visual inspection and Yes trachea midline Chest Chest palpation & inspection: normal inspection of the chest Resp Effort & Inspection: normal respiratory effort and able to speak in complete sentences Cardio Rate: regular rate GI Inspection: Yes normal to inspection General: Yes no CVA tenderness Back/Spine/Pelvis Back: no CVA tenderness Skin General skin exam: no rashes or lesions noted Neuro General: patient oriented x3 Extrem General: Yes normal to inspection Psych Appearance: grossly normal and well kempt Mental Status: mental status grossly normal Speech and movement: Normal speech and movement present and Clear speech present Affect: normal affect Attitude: cooperative Thought process: Normal thought process present Thought content: Normal thought content present Insight: Fair insight present (Psych) Judgement: Fair judgement present (Psych) Results AMB Urinalysis, Automated UA Leukoctes 0 Valarie/uL Last Edit by [email or web address] on 09/02/24 08:27 UA Nitrite Last Edit by [email or web address] on 09/02/24 08:27 UA Urobilinogen 0.2 mg/dL Last Edit by [email or web address] on 09/02/24 08:27 UA Protein 15 mg/dL Last Edit by [email or web address] on 09/02/24 08:27 UA pH 6.0 Last Edit by [email or web address] on 09/02/24 08:27 UA Blood 0 James/uL Last Edit by [email or web address] on 09/02/24 08:27 UA Specific Ke[place] 1.020 Last Edit by [email or web address] on 09/02/24 08:27 UA Ketone Negative Last Edit by [email or web address] on 09/02/24 08:27 UA Bilirubin 0 mg/dL Last Edit by [employer] on 09/02/24 08:27 UA Glucose 0 mg/dL Last Edit by [email or web address] on 09/02/24 08:27 Results Reviewed Results Reviewed: Laboratory Last Values Urine pH (Auto) 6.0 09/02/24 08:26 Specific [place] (Auto) 1.020 09/02/24 08:26 Urine Protein (Auto) 15 mg/dL 09/02/24 08:26 Glucose (UA)(Auto) 0 mg/dL 09/02/24 08:26 Urine Ketones (Auto) Negative 09/02/24 08:26 Urine Blood (Auto) 0 James/uL 09/02/24 08:26 Urine Bilirubin (Auto) 0 mg/dL 09/02/24 08:26 Urine Urobilinogen (Auto) 0.2 mg/dL 09/02/24 08:26 Leukocyte Esterase (Auto) 0 Valarie/uL 09/02/24 08:26 Date of Service: 07/21/24 EXAMINATION: CT ABDOMEN AND PELVIS WITHOUT CONTRAST FINDINGS: LUNG BASES: The visualized lung bases are unremarkable. LIVER, GALLBLADDER, AND BILIARY TREE: The liver is enlarged at 18.6 cm in length with decreased attenuation consistent with hepatic steatosis. There is focal fatty sparing around the gallbladder. No focal hepatic lesion or biliary ductal dilatation is present. The gallbladder is unremarkable with no evidence of radiopaque gallstones, gallbladder wall thickening, or obvious pericholecystic inflammatory changes. PANCREAS: Unremarkable. SPLEEN: Unremarkable. ADRENAL GLANDS: Unremarkable. KIDNEYS AND URETERS: There is right-sided hydronephrosis and dilatation of the right ureter down to the level of 2 mm sized obstructing stone at the right UVJ. Left kidney and ureter are normal. BLADDER: Empty but unremarkable GASTROINTESTINAL TRACT: Few scattered colonic diverticula without diverticulitis. The small and large bowel are unremarkable. The appendix is unremarkable. ABDOMINAL WALL: No significant hernia is appreciated. LYMPH NODES: No retroperitoneal lymphadenopathy VASCULAR: Unremarkable. PELVIC VISCERA: Feeding OSSEOUS STRUCTURES: Marked scoliosis convex to the left with left lateral listhesis of L2 upon L3 with severe degenerative change at this level with loss of the disc space IMPRESSION: 1. Obstructing 2 mm calculus at the right UVJ with associated right-sided hydronephrosis. 2. Incidental note made of enlarged fatty liver and severe degenerative changes in the spine with scoliosis. Assessment & Plan Assessment & Plan (1) Nephrolithiasis: Code(s): N20.0 - Calculus of kidney Category: Medical Plan In office urinalysis results reviewed with the patient today; as noted above. Recent CT results reviewed with the patient today; as noted above. Discussed potential causes for nephrolithiasis. Will obtain renal ultrasound for further assessment evaluation. Discussed, educated, and stressed the importance of adequate hydration relation to nephrolithiasis as well as overall health and well-being. Discussed adding 1 oz of lemon juice to water daily. She currently denies any bothersome urinary issues or concerns. She reports be happy with current voiding parameters. Follow-up in 1-3 months with imaging to be completed prior; or sooner with any issues, concerns, and or questions. Orders: Orders AMB Urinalysis Automated Today Z13.9 - Encounter for screening, unspecified Patient Instructions: The patient had an opportunity to ask questions regarding the treatment plan. All questions were answered. Physical exam, labs, and imaging were discussed and reviewed in detail. As well as risks, benefits, and discussion of treatment choices. No major barriers to understanding were identified. The patient expressed understanding and agreement with the above treatment plan. The patient was made aware they should contact our office by phone for worsening of their current condition, the appearance of new symptoms, or with any questions or concerns. Compliance is encouraged with any medications and follow up testing that is ordered. It is a privilege to be allowed the opportunity to participate in? your urological care.? Again, if you have any questions or concerns If you have any questions or concerns please do not hesitate to contact me. The office is [phone]. This note is constructed using voice recognition software. While every effort has been made to ensure accuracy lemon grower errors may have been included. Yours sincerely, JUAN Fang Coding Level of Care Code New Pt Level 3 (56561) Diagnoses Nephrolithiasis N20.0
== END 2024-09-02 08:41 | disposition home or self-care (01) ==
LOC: HO.HUSH 07:59
PROVIDERS: PCP Internal Medicine; Visit Provider Nurse Practitioner Family
DX: N20.0 Calculus of kidney (principal); Z13.9 Encounter for screening, unspecified
CPT/HCPCS: 99203

== ENCOUNTER → 2024-09-02 07:58 | Outpatient (BNVA) | payer BC, SELFPAY | PROVIDERS: PCP Internal Medicine; Visit Provider Nurse Practitioner Family | DX: N20.0 Calculus of kidney (principal) | CPT/HCPCS: 81003 ==